=== PATIENT | female | born 1965 | race Caucasian/White ===

== ENCOUNTER 2020-12-17 12:04 | Outpatient (CLI) | payer BC ==
[2020-12-17] MEDS ORDERED: ONDANSETRON 4 MG/2 ML (SDV) Z0FRAN IV PRN (12:45)
[2020-12-17] MEDS ORDERED: diphenhydrAMINE 50 MG/ML INJ (BENADRYL) IV PRN (12:45)
[2020-12-17] MEDS ORDERED: CASIRIVIMAB/IMDEVIMAB 1,200 MG in NS (IVPB) 250 ML IV ONE (12:45)
[2020-12-17] MEDS ORDERED: EPINEPHrine INJECTION 1 MG/ML AMP IM PRN (12:45)
[2020-12-17] MEDS ORDERED: ACETAMINOPHEN 500 MG TAB (TYLENOL) PO PRN (12:45)
[2020-12-17 14:36] VITALS: BP 160/76
== END 2020-12-17 14:37 | disposition home or self-care (01) ==
LOC: INFUSION 12:04
PROVIDERS: ATTEND Registered Nurse
DX: Z23 Encounter for immunization (principal); U07.1 COVID-19

== ENCOUNTER 2022-04-14 18:39 | Emergency (ER) | payer BC, OTHER ==
[~2022-04-14] VITALS: Ht 122 cm; Wt 155.4 kg
--- NOTE | 2022-04-14 19:09 | ED Abdominal Pain ---
General Stated Complaint: UPPER ABD PAIN Source of Information: Patient Exam Limitations: No Limitations History of Present Illness Date Seen by Provider: Apr 14, 2022 Time Seen by Provider: 19:00 Initial Comments 56-year-old female presents to the emergency department today for epigastric and right upper quadrant abdominal pain for 4 to 5 days. She has seen her primary doctor and had a gallbladder ultrasound. She has the results available and shows a 5 mm mobile stone with some gallbladder sludge and a likely polyp. No evidence for acute cholecystitis at that time. She is continue to have a gnawing sensation in her epigastric region with radiation into her mid back and shoulder blade region. No nausea or vomiting. No fevers or chills. Pain has no obvious aggravating or alleviating factors, is not specifically worse with food intake. No changes in bowel or bladder habits. She does have a CT scan set up for the 12th and also was supposed to see Dr. Scott for discussion of possible colonoscopy and ultrasound results. Allergies and Home Medications Allergies Coded Allergies: aspirin (Verified Allergy, Severe, Anaphylaxis, 12/17/20) CANT BREATHE Patient Home Medication List Home Medication List Reviewed: Yes Review of Systems Review of Systems Constitutional: no symptoms reported EENTM: No Symptoms Reported Respiratory: No Symptoms Reported Cardiovascular: No Symptoms Reported Gastrointestinal: Abdominal Pain Genitourinary: No Symptoms Reported Musculoskeletal: no symptoms reported Skin: no symptoms reported Psychiatric/Neurological: No Symptoms Reported Endocrine: No Symptoms Reported Hematologic/Lymphatic: No Symptoms Reported Past Weynhll-Ovmugg-Uuixkw Hx Patient Social History Tobacco Use?: No Use of E-Cig and/or Vaping dev: No Substance use?: No Alcohol Use?: No Family Medical History Reviewed Nursing Family Hx No Pertinent Family Hx Physical Exam Vital Signs Vital Signs - First Documented 04/14/22 18:51 Temp 36.0 Pulse 98 Resp 20 B/P (MAP) 209/99 (135) Pulse Ox 95 O2 Delivery Room Air Capillary Refill : Height/Weight/BMI Height: '" Weight: lbs. oz. kg; BMI Method: General Appearance: WD/WN, no apparent distress HEENT: normal ENT inspection, pharynx normal Neck: non-tender, supple Respiratory: chest non-tender, lungs clear, normal breath sounds, no respiratory distress, no accessory muscle use Cardiovascular: regular rate, rhythm, no murmur Gastrointestinal: normal bowel sounds, soft, no organomegaly, tenderness (Mild tenderness palpation the epigastric region. No rebound or guarding. No mass organomegaly. No skin changes.) Extremities: normal range of motion, non-tender, normal inspection, normal capillary refill Back: normal inspection, no CVA tenderness, no vertebral tenderness Neurologic/Psychiatric: alert, normal mood/affect, oriented x 3 Skin: normal color, warm/dry Lymphatic: no adenopathy Progress/Results/Core Measures Results/Orders Lab Results Laboratory Tests Test 04/14/22 19:25 Range/Units White Blood Count 8.7 4.3-11.0 10^3/uL Red Blood Count 5.49 H 3.80-5.11 10^6/uL Hemoglobin 15.9 11.5-16.0 g/dL Hematocrit 45 35-52 % Mean Corpuscular Volume 82 80-99 fL Mean Corpuscular Hemoglobin 29 25-34 pg Mean Corpuscular Hemoglobin Concent 35 32-36 g/dL Red Cell Distribution Width 11.9 10.0-14.5 % Platelet Count 387 130-400 10^3/uL Mean Platelet Volume 9.9 9.0-12.2 fL Immature Granulocyte % (Auto) 0 % Neutrophils (%) (Auto) 56 42-75 % Lymphocytes (%) (Auto) 36 12-44 % Monocytes (%) (Auto) 6 0-12 % Eosinophils (%) (Auto) 1 0-10 % Basophils (%) (Auto) 1 0-10 % Neutrophils # (Auto) 4.8 1.8-7.8 10^3/uL Lymphocytes # (Auto) 3.1 1.0-4.0 10^3/uL Monocytes # (Auto) 0.5 0.0-1.0 10^3/uL Eosinophils # (Auto) 0.1 0.0-0.3 10^3/uL Basophils # (Auto) 0.1 0.0-0.1 10^3/uL Immature Granulocyte # (Auto) 0.0 0.0-0.1 10^3/uL Sodium Level 137 135-145 MMOL/L Potassium Level 4.1 3.6-5.0 MMOL/L Chloride Level 102 98-107 MMOL/L Carbon Dioxide Level 21 21-32 MMOL/L Anion Gap 14 5-14 MMOL/L Blood Urea Nitrogen 17 7-18 MG/DL Creatinine 0.59 L 0.60-1.30 MG/DL Estimat Glomerular Filtration Rate 106 BUN/Creatinine Ratio 29 Glucose Level 311 H 70-105 MG/DL Calcium Level 11.1 H 8.5-10.1 MG/DL Corrected Calcium 10.7 H 8.5-10.1 MG/DL Total Bilirubin 0.4 0.1-1.0 MG/DL Aspartate Amino Transf (AST/SGOT) 43 H 5-34 U/L Alanine Aminotransferase (ALT/SGPT) 72 H 0-55 U/L Alkaline Phosphatase 144 H 40-136 U/L Total Protein 7.5 6.4-8.2 GM/DL Albumin 4.5 3.2-4.5 GM/DL Lipase 15 8-78 U/L My Orders Orders - MARCUS REYES DO Cbc With Automated Diff (04/14/22 19:05) Comprehensive Metabolic Panel (04/14/22 19:05) Lipase (04/14/22 19:05) Ct Abdomen/Pelvis W (04/14/22 19:05) Fentanyl Inj (Sublimaze Injection) (04/14/22 19:15) Iohexol Injection (Omnipaque 350 Mg/Ml 1 (04/14/22 19:30) Received Contrast (Hold Metformin- Contr (04/14/22 19:30) Sodium Chloride Flush (Catheter Flush Sy (04/14/22 19:30) Ns (Ivpb) (Sodium Chloride 0.9% Ivpb Bag (04/14/22 19:30) Medications Given in ED Current Medications Medications Dose Ordered Sig/Nuno Route Start Time Stop Time Status Last Admin Dose Admin Fentanyl Citrate 50 mcg ONCE ONCE IVP 04/14/22 19:15 04/14/22 19:16 DC 04/14/22 19:57 50 MCG Iohexol 100 ml ONCE ONCE IV 04/14/22 19:30 04/14/22 19:31 DC 04/14/22 20:44 80 ML Sodium Chloride 10 ml NEEDED PRN IV 04/14/22 19:30 04/14/22 19:59 10 ML Sodium Chloride 100 ml ONCE ONCE IV 04/14/22 19:30 04/14/22 19:31 DC 04/14/22 20:44 100 ML Vital Signs/I&O 04/14/22 18:51 Temp 36.0 Pulse 98 Resp 20 B/P (MAP) 209/99 (135) Pulse Ox 95 O2 Delivery Room Air Departure Communication (Admissions) Patient is hemodynamically stable, nontoxic with a normal white blood cell count. CMP obtained and she does have slightly elevated liver function testing including alk phos which indicates likely obstructive biliary disease. Her pain is nearly completely resolved with single dose of IV fentanyl here. CT scanning shows no other acute abnormality except for the gallbladder findings. CBC is normal. She is afebrile and nontoxic. No evidence for acute cholecystitis. She does have an appoint with Dr. Scott in 3 days. Advised her to notify her primary doctor Dr. Scott's office that she already have the CT scan completed. She states understanding. She will return to care for any severe pain, inability to tolerate food or fluids or if her symptoms change in any way concerning to her. Recommended maintaining bland diet. Impression Primary Impression: Biliary colic Additional Impressions: Cholelithiasis Qualified Codes: K80.21 - Calculus of gallbladder without cholecystitis with obstruction Elevated LFTs Disposition: 01 HOME, SELF-CARE Condition: Stable Departure-Patient Inst. Referrals: YOMAIRA BARBOZA APRN (PCP/Family) Primary Care Physician Patient Instructions: Gallstones Add. Discharge Instructions: Maintain a bland diet. Use hydrocodone as needed for pain. Do not drive or make important decisions while taking it as it may make you drowsy. Return to the emergency department for any severe pain is not controlled by pain medication, inability tolerate fluids or if your symptoms change in any way concerning to you. Otherwise keep your appoint with Dr. Scott as previously scheduled. Notify Dr. Scott and your primary care doctor that your CT scan is already being completed so they can make arrangements. Scripts Hydrocodone Bit/Acetaminophen (HYDROcodone/APAP 5 MG/325 MG TAB) 1 Tab Tab 1 TAB PO Q6H for Pain for 3 Days, #12 TAB Prov: MARCUS REYES DO 04/14/22 MARCUS REYES DO Apr 14, 2022 19:09
[2022-04-14] MEDS ORDERED: fentaNYL INJ 100 MCG/2 ML AMP IVP ONE (19:15)
[2022-04-14] MEDS ORDERED: HOLD METFORMIN - RECEIVED CONTRAST 20 ML VIAL IV SCH (19:30)
[2022-04-14] MEDS ORDERED: NS 100 ML (IVPB) BAG IV ONE (19:30)
[2022-04-14] MEDS ORDERED: IOHEXOL 350 MG/ML 100 ML (OMNIPAQUE 350) VIAL IV ONE (19:30)
[2022-04-14] MEDS ORDERED: CATHETER FLUSH 10 ML SYR IV PRN (19:30)
[2022-04-14 19:33] LABS: BASOPHILS # (AUTO) 0.1 10^3/uL (0.0-0.1); BASOPHILS % (AUTO) 1 % (0-10); EOSINOPHILS # (AUTO) 0.1 10^3/uL (0.0-0.3); EOSINOPHILS % (AUTO) 1 % (0-10); HEMATOCRIT 45 % (35-52); HEMOGLOBIN 15.9 g/dL (11.5-16.0); LYMPHOCYTES # (AUTO) 3.1 10^3/uL (1.0-4.0); LYMPHOCYTES % (AUTO) 36 % (12-44); MEAN CORPUSCULAR HEMOGLOBIN 29 pg (25-34); MEAN CORPUSCULAR HGB CONC 35 g/dL (32-36); MEAN CORPUSCULAR VOLUME 82 fL (80-99); MEAN PLATELET VOLUME 9.9 fL (9.0-12.2); MONOCYTES # (AUTO) 0.5 10^3/uL (0.0-1.0); MONOCYTES % (AUTO) 6 % (0-12); NEUTROPHILS # (AUTO) 4.8 10^3/uL (1.8-7.8); NEUTROPHILS % (AUTO) 56 % (42-75); PLATELET COUNT 387 10^3/uL (130-400); WHITE BLOOD COUNT 8.7 10^3/uL (4.3-11.0)
[2022-04-14 19:53] LABS: BILIRUBIN,TOTAL 0.4 MG/DL (0.1-1.0); CALCIUM 11.1 MG/DL (8.5-10.1); CREATININE SERUM 0.59 MG/DL (0.60-1.30); POTASSIUM 4.1 MMOL/L (3.6-5.0)
[2022-04-14 19:54] LABS: ALBUMIN 4.5 GM/DL (3.2-4.5); TOTAL PROTEIN 7.5 GM/DL (6.4-8.2)
[2022-04-14] MEDS ORDERED: ACHD5005 PO (21:03)
[2022-04-14 21:15] VITALS: BP 204/107
--- NOTE | 2022-04-14 21:23 | Diagnostic Imaging Report ---
PROCEDURE: CT abdomen and pelvis with contrast. TECHNIQUE: Multiple contiguous axial images were obtained through the abdomen and pelvis after administration of intravenous contrast. Auto Exposure Controls were utilized during the CT exam to meet ALARA standards for radiation dose reduction. All CT scans use one or more of the following dose optimizing techniques: automated exposure control, MA and/or KvP adjustment based on patient size and exam type or iterative reconstruction. DATE: April 14, 2022. COMPARISON: None. INDICATION: 56-year-old female, right upper quadrant abdominal pain. FINDINGS: The visualized portions of the lung bases are clear. The heart is not enlarged. There is no identified pericardial effusion. There is diffuse fatty infiltration of the liver. The liver is unremarkable in size and contour. There is no identified liver lesion. The main, right, and left portal veins are patent. The gallbladder is unremarkable. There is no identified biliary ductal dilation. Unremarkable evaluation of the pancreas. The spleen is normal in size. The adrenal glands are unremarkable. There are nonobstructing left renal stones. There are subcentimeter left renal lesions which are too small to characterize. There is also a nonobstructing right renal stone. The urinary collecting systems are not distended. There is no identified ureteral stone. The urinary bladder is unremarkable. CT evaluation of the uterus and adnexa is grossly unremarkable. There is very mild diverticulosis without evidence of acute diverticulitis. The appendix is unremarkable. There is no free intraperitoneal air. There is no drainable fluid collection. There is no free fluid in the abdomen or pelvis. There is no identified abnormally enlarged lymph node in the abdomen or pelvis meeting CT size criteria for adenopathy. There are atherosclerotic calcifications. There are multilevel degenerative changes of the spine. IMPRESSION: CT ABDOMEN AND PELVIS. 1. Diffuse fatty infiltration of the liver. 2. Nonobstructing renal stones bilaterally without identified ureteral stone or hydronephrosis. 3. No identified acute abnormality in the abdomen or pelvis. Dictated by: Dictated on workstation # [id number]
== END 2022-04-14 21:15 | disposition home or self-care (01) ==
LOC: EDUNIT# 18:39 → ER FS 18:43
DX: K80.70 Calculus of gallbladder and bile duct without cholecystitis without obstruction (principal); R79.89 Other specified abnormal findings of blood chemistry
CPT/HCPCS: 36415; 74177; 80053; 83690; 85025

== ENCOUNTER → 2023-02-25 | Outpatient (CLI) | payer OTHER ==
[~2023-02-25] MED LIST: ACHD5005 PO
== END | disposition home or self-care (01) ==
LOC: PREOP 05:46
PROVIDERS: ATTEND Surgery
DX: Z01.818 Encounter for other preprocedural examination (principal)